=== PATIENT | male | born 1965 | race Two or more races ===

== ENCOUNTER 2023-11-30 09:43 | Emergency (ER) | payer OTHER ==
[~2023-11-30] VITALS: Ht 170.2 cm; Wt 108.9 kg
[2023-11-30] MEDS ORDERED: ELIQUIS5 MG PO (10:27)
[2023-11-30] MEDS ORDERED: CANDESARTAN CILE8 MG PO (10:27)
[2023-11-30] MEDS ORDERED: TRELEGY ELLIPT1 EACH IH (10:27)
[2023-11-30] MEDS ORDERED: TOPROL XL25 M1 PO (10:28)
[2023-11-30] MEDS ORDERED: SERTRALINE HCL100 MG PO (10:28)
[2023-11-30] MEDS ORDERED: SIMVASTATIN5 MG PO (10:28)
[2023-11-30 12:02] LABS: HEMATOCRIT 46.7 % (39.0-48.0); HEMOGLOBIN 15.4 g/dL (13-16.00); MEAN CELL VOLUME 99.3 fL (80.0-100.00); MEAN CORPUSCULAR HEMOGLOBIN 32.8 pg (27.00-32.0); PLATELET COUNT 142 K/uL (150-450); RED BLOOD COUNT 4.71 M/uL (4.00-6.00); RED CELL DISTRIBUTION WIDTH 13.7 % (11.5-14.5)
[2023-11-30 12:54] LABS: ALBUMIN 3.5 gm/dL (3.4-5.0); BILIRUBIN TOTAL 0.87 mg/dL (0.3-1.2); BILIRUBIN,CONJUGATED 0.31 mg/dL (0.0-0.2); BILIRUBIN,UNCONJUGATED 0.56 mg/dL (0.0-0.6); CALCIUM 9.2 mg/dL (8.5-10.1); CREATININE SERUM 0.61 mg/dL (0.70-1.30); GFR 134.83; GLOBULINA 4.3 G/DL (2.4-3.5); POTASSIUM 4.08 mEq/L (3.5-5.1); TOTAL PROTEIN 7.8 gm/dL (6.4-8.2)
[2023-11-30] MEDS ORDERED: LEVSIN/SL0.125 MG SL (14:58)
[2023-11-30] MEDS ORDERED: PEPCID AC20 MG PO (14:58)
== END 2023-11-30 15:06 | disposition home or self-care (01) ==
LOC: ER 09:43
PROVIDERS: General Practice
DX: K80.50 Calculus of bile duct without cholangitis or cholecystitis without obstruction (principal); R10.84 Generalized abdominal pain; R11.2 Nausea with vomiting, unspecified; I11.9 Hypertensive heart disease without heart failure
CPT/HCPCS: 36415; 76700; 96365; 96366; 99284; J1885; J2405; J3490; J7030